=== PATIENT | male | born 1985 | race Caucasian/White ===

== ENCOUNTER 2019-03-27 02:35 | Emergency (ER) | payer OTHER, MEDICAID ==
[~2019-03-27] VITALS: Ht 180.3 cm; Wt 81.8 kg
[~2019-03-27 02:35] MED LIST: NOCURR
[2019-03-27 04:05] VITALS: BP 126/80
== END 2019-03-27 04:27 | disposition home or self-care (01) ==
LOC: EMS 02:36
DX: M79.10 Myalgia, unspecified site (principal); M54.2 Cervicalgia; R07.9 Chest pain, unspecified; F17.210 Nicotine dependence, cigarettes, uncomplicated; V49.9XXA Car occupant (driver) (passenger) injured in unspecified traffic accident, initial encounter; Y93.89 Activity, other specified; Y92.89 Other specified places as the place of occurrence of the external cause; Y99.8 Other external cause status